=== PATIENT | male | born 1985 | race Caucasian/White ===

== ENCOUNTER 2020-06-04 08:29 | Emergency (ER) | payer SELFPAY ==
[2020-06-04 08:44] VITALS: BP 112/81
--- NOTE | 2020-06-04 09:35 | ER Document Report ---
ED General - General Chief Complaint: Abscess Stated Complaint: BUG BITE ON RIGHT ARM Time Seen by Provider: 06/04/20 09:35 - HPI Patient complains to provider of: abscess right forearm Notes: 5-year-old male no chronic medical history, no history of IV drug use presents with abscess right forearm medial aspect proximal. Been going on for day or so. Not sure how he got it. History abscess in the past - Related Data Allergies/Adverse Reactions: Penicillins Allergy (Verified 06/04/20 08:42) hive Past Medical History - Social History Smoking Status: Current Some Day Smoker Chew tobacco use (# tins/day): No Frequency of alcohol use: None Drug Abuse: None Family History: None Patient has homicidal ideation: No Review of Systems - Review of Systems Notes: REVIEW OF SYSTEMS: CONSTITUTIONAL: -fevers, -chills EENT: -eye pain, -difficulty swallowing, -nasal congestion CARDIOVASCULAR: -chest pain, -syncope. RESPIRATORY: -cough, -SOB GASTROINTESTINAL: -abdominal pain, -nausea, -vomiting, -diarrhea GENITOURINARY: -dysuria, -hematuria MUSCULOSKELETAL: -back pain, -neck pain HEMATOLOGIC: -easy bruising or bleeding. LYMPHATIC: -swollen, enlarged glands. NEUROLOGICAL: -altered mental status or loss of consciousness, -headache, - neurologic symptoms PSYCHIATRIC: -anxiety, -depression. ALL OTHER SYSTEMS REVIEWED AND NEGATIVE. Physical Exam - Vital signs Vitals: Temp Pulse Resp BP Pulse Ox 98.9 F 94 14 112/81 99 06/04/20 08:41 06/04/20 08:41 06/04/20 08:41 06/04/20 08:41 06/04/20 08:41 - Notes Notes: PHYSICAL EXAMINATION: GENERAL: Well-appearing, well-nourished and in no acute distress. HEAD: Atraumatic, normocephalic. EYES: Pupils equal round and reactive to light, extraocular movements intact, sclera anicteric, conjunctiva are normal. ENT: nares patent, oropharynx clear without exudates. Moist mucous membranes. NECK: Normal range of motion, supple without lymphadenopathy LUNGS: Breath sounds clear to auscultation bilaterally and equal. No wheezes rales or rhonchi. HEART: Regular rate and rhythm without murmurs ABDOMEN: Soft, nontender, normoactive bowel sounds. No guarding, no rebound. No masses appreciated. EXTREMITIES: Normal range of motion, no pitting or edema. No cyanosis. NEUROLOGICAL: Cranial nerves grossly intact. Normal speech, normal gait. Normal sensory and motor exams. PSYCH: Normal mood, normal affect. SKIN: Abscess medial aspect right forearm area surrounding cellulitis approximately 8 cm diameter Course - Re-evaluation Re-evalutation: 06/04/20 10:52 I and perform, oral abx given, prescription for more Bactrim and oral oxycodone, return if anything changes. - Vital Signs Vital signs: Temp Pulse Resp BP Pulse Ox 98.9 F 94 14 112/81 99 06/04/20 08:41 06/04/20 08:41 06/04/20 08:41 06/04/20 08:41 06/04/20 08:41 Procedures - Incision and Drainage Right Upper Arm Type: Simple Anesthetic type: 1% Lidocaine w/epi Blade size: 11 I&D procedure: Betadine prep applied Incision Method: Incision made by scalpel Discharge - Discharge Clinical Impression: Abscess Condition: Stable Disposition: HOME, SELF-CARE Instructions: Abscess ([facility]) Prescriptions: Sulfamethoxazole/Trimethoprim [Bactrim Ds Tablet] 1 each PO Q12H #14 tablet Oxycodone HCl 5 mg PO Q6H PRN #9 capsule PRN Reason:
[2020-06-04] MEDS ORDERED: KETOROLAC TROMETHAMINE 60 MG/2 ML SDV IM ONE (09:43)
[2020-06-04] MEDS ORDERED: SULFAMETHOXAZOLE/TRIMETHOPRIM 800-160 MG TABLET PO ONE (09:43)
[2020-06-04] MEDS ORDERED: LIDOCAINE 1%/EPINEPHRINE INJ 20 ML VIAL INJ ONE (09:43)
== END 2020-06-04 11:24 | disposition home or self-care (01) ==
LOC: ER 08:29
DX: L02.413 Cutaneous abscess of right upper limb (principal); L03.113 Cellulitis of right upper limb; F17.200 Nicotine dependence, unspecified, uncomplicated; Z88.0 Allergy status to penicillin
CPT/HCPCS: 99283; 96372; 10060; J1885; J3490

== ENCOUNTER 2020-06-05 18:11 | Emergency (ER) | payer SELFPAY ==
[2020-06-05 18:17] VITALS: BP 118/55
[2020-06-05] MEDS ORDERED: CEFTRIAXONE INJ 1000 MG VIAL IM ONE (19:10)
[2020-06-05] MEDS ORDERED: LIDOCAINE 1% INJ-PF (10 MG/ML) 30 ML SDV INJ ONE (19:10)
--- NOTE | 2020-06-05 19:53 | ER Document Report ---
HPI - HPI Time Seen by Provider: 06/05/20 19:10 Pain Level: 3 Notes: 35-year-old male presents emergency room for reevaluation of an abscess that he had incised and drained yesterday, was placed on oral Bactrim. Patient states the redness has become progressively better, but the area around where he had his incision and drainage to his right forearm the skin has become redder and a bit tougher. Patient states that his abscess stopped draining. Patient is taking his oral Bactrim as directed. Denies any fevers or chills. Eating and drinking not any issues. Has not tried any hot compresses. Denies any fevers chills, denies any chest pain shortness of breath nausea vomiting or diarrhea MEDICATIONS: I agree with the patient medications as charted by the RN. ALLERGIES: I agree with the allergies as charted by the RN. PAST MEDICAL HISTORY/PAST SURGICAL HISTORY: Reviewed and agree as charted by RN. SOCIAL HISTORY: Reviewed and agree as charted by RN. FAMILY HISTORY: No significant familial comorbid conditions directly related to patient complaint EXAM: Reviewed vital signs as charted by RN. REVIEW OF SYSTEMS:reviewed vital signs by RN CONSTITUTIONAL : Denies fever, chills, or sweats. Denies recent illness. EENT: Denies eye, ear, throat, or mouth pain or symptoms. Denies nasal or sinus congestion or discharge. Denies throat, tongue, or mouth swelling or difficulty swallowing. CARDIOVASCULAR: Denies chest pain. Denies palpitations or racing or irregular heart beat. Denies ankle edema. RESPIRATORY: Denies cough, cold, or chest congestion. Denies shortness of breath, difficulty breathing, or wheezing. GASTROINTESTINAL: Denies abdominal pain or distention. Denies nausea, vomiting, or diarrhea. Denies blood in vomitus, stools, or per rectum. Denies black, tarry stools. Denies constipation. GENITOURINARY: Denies difficulty urinating, painful urination, burning, frequency, blood in urine, or discharge. MUSCULOSKELETAL: Denies back or neck pain or stiffness. Denies joint pain or swelling. SKIN: healing abscess to his right forearm that was incised and drained. denies rash, lesions or sores. HEMATOLOGIC : Denies easy bruising or bleeding. LYMPHATIC: Denies swollen, enlarged glands. NEUROLOGICAL: Denies confusion or altered mental status. Denies passing out or loss of consciousness. Denies dizziness or lightheadedness. Denies headache. Denies weakness or paralysis or loss of use of either side. Denies problems with gait or speech. Denies sensory loss, numbness, or tingling. Denies seizures. PSYCHIATRIC: Denies anxiety or stress. Denies depression, suicidal ideation, or homicidal ideation. ALL OTHER SYSTEMS REVIEWED AND NEGATIVE. Dictation was performed using [employer] voice recognition software PHYSICAL EXAMINATION: GENERAL: Well-appearing, well-nourished and in no acute distress. HEAD: Atraumatic, normocephalic. EYES: Pupils equal round and reactive to light, extraocular movements intact, sclera anicteric, conjunctiva are normal. ENT: Nares patent, oropharynx clear without exudates. Moist mucous membranes. NECK: Normal range of motion, supple without lymphadenopathy LUNGS: Breath sounds clear to auscultation bilaterally and equal. No wheezes rales or rhonchi. HEART: Regular rate and rhythm without murmurs ABDOMEN: Soft, nontender, nondistended abdomen. No guarding, no rebound. No masses appreciated. Musculoskeletal: Normal range of motion, no pitting or edema. No cyanosis. NEUROLOGICAL: Cranial nerves grossly intact. Normal speech, normal gait. Normal sensory, motor exams PSYCH: Normal mood, normal affect. SKIN: Warm, Dry, normal turgor, no rashes or lesions noted. right forearm distal to elbow to posterior arm with [id number] with erythema, induration and warmtht to touch. Surrounding lymphadenopathy. Past Medical History - Social History Smoking Status: Current Every Day Smoker Frequency of alcohol use: None Drug Abuse: None Family History: None Course - Re-evaluation Re-evalutation: 06/05/20 20:07 Afebrile vital stable no distress. Nurses notes reviewed. Patient cellulitis is healing, patient was concerned about erythema around his abscess site. Will give patient 1 g Rocephin IM and observed for his history of of penicillin allergy from when he was a child. Advised to continue taking Bactrim outpatient, applying warm compress to site 20 minutes on 20 minutes off several times a day. Patient presents with symptoms most consistent with an acute cellulitis. Vitals within normal limits. Patient does not meet sepsis criteria is overall very well in appearance. Exam and history are not consistent with DVT. At this time will discharge with return precautions and follow-up recommendations. Verbal discharge instructions given a the bedside and opportunity for questions given. Medication warnings reviewed. Patient is in agreement with this plan and has verbalized understanding of return precautions and the need for primary care follow-up in the next 24-72 hours. - Vital Signs Vital signs: Temp Pulse Resp BP Pulse Ox 98.8 F 75 20 118/55 L 94 06/05/20 18:16 06/05/20 18:16 06/05/20 18:16 06/05/20 18:16 06/05/20 18:16 Discharge - Discharge Clinical Impression: Abscess Condition: Stable Disposition: HOME, SELF-CARE Instructions: Abscess ([facility]), Rocephin ([facility]), Trimethoprim-Sulfa ([facility]) Additional Instructions: Given 1 g of Rocephin today. Please continue taking your oral antibiotic that was prescribed yesterday.Do not stop even if the rash goes away until you have completed all the antibiotics. The area of redness was traced out here in the emergency department with a marking pen. You need to return to emergency department if the redness spreads outside of this area by more than 2 cm in any direction. You should also return if you develop fevers with temperature greater than 101, persistent vomiting, worsening pain, or have any other symptoms that are concerning to you. Return immediately for any new or worsening symptoms. Follow up with primary care provider, call tomorrow to make followup appointment. Referrals: JANIYA GERBER MD [NO LOCAL MD] - Follow up as needed
== END 2020-06-05 20:51 | disposition home or self-care (01) ==
LOC: ER 18:11
DX: L02.413 Cutaneous abscess of right upper limb (principal); F17.200 Nicotine dependence, unspecified, uncomplicated
CPT/HCPCS: 99282; 96372; J3490; J0696